=== PATIENT | female | born 1995 | race Caucasian/White ===

== ENCOUNTER 2020-11-28 14:40 | Observation (INO) | payer MEDICAID ==
[2020-11-28] MEDS ORDERED: PREN-217 PO (15:10)
[2020-11-28 15:12] VITALS: BP 119/57
[2020-11-28 17:22] LABS: APPEARANCE,URINE CLOUDY (CLEAR); BILIRUBIN,URINE NEGATIVE (NEGATIVE); GLUCOSE, URINE (UA) NEGATIVE (NEGATIVE); KETONES,URINE NEGATIVE (NEGATIVE); LEUKOCYTE ESTERASE ,URINE MODERATE (NEGATIVE); NITRATE,URINE NEGATIVE (NEGATIVE); OCCULT BLOOD,URINE NEGATIVE (NEGATIVE); PH,URINE 7.5 (5.0-8.0); PROTEIN,URINE TRACE (NEGATIVE); UROBILINOGEN,URINE 0.2 mg/dL (<=1.0)
[2020-11-28 17:27] LABS: AMPHET/METH SCREEN,URINE NEGATIVE (NEGATIVE); BARBITURATE SCREEN, URINE NEGATIVE (NEGATIVE); BENZODIAZEPINES SCREEN,URINE NEGATIVE (NEGATIVE); CANNABINOID SCREEN,URINE NEGATIVE (NEGATIVE); COCAINE SCREEN,URINE NEGATIVE (NEGATIVE); METHADONE SCREEN, URINE NEGATIVE (NEGATIVE); OPIATE SCREEN,URINE NEGATIVE (NEGATIVE)
[2020-11-28 17:28] LABS: PHENCYCLIDINE SCREEN,URINE NEGATIVE (NEGATIVE)
[2020-11-28 17:30] LABS: BASOPHILS % (AUTO) 0.2 % (0.0-2.0); EOSINOPHILS % (AUTO) 0.8 % (1.0-6.0); HEMATOCRIT 28.4 % (36-46); LYMPHOCYTES # (AUTO) 1.1 K/uL (1.0-4.8); LYMPHOCYTES % (AUTO) 13.2 % (22.0-44.0); MEAN CORPUSCULAR HEMOGLOBIN 34.3 pg (26.0-34.0); MEAN CORPUSCULAR VOLUME 98 fL (80-100); MONOCYTES # (AUTO) 0.4 K/uL (0.1-1.0); MONOCYTES % (AUTO) 4.3 % (2.0-9.0); NEUTROPHILS # (AUTO) 6.6 K/uL (1.8-7.7); NEUTROPHILS % (AUTO) 81.5 % (40.0-70.0); PLATELET COUNT (AUTO)-OB 283 K/uL (150-450); RED CELL DISTRIBUTION WIDTH 13.5 % (11.5-14.5)
[2020-11-28 17:37] LABS: BACTERIA,URINE Many /HPF (None Seen); RBC,URINE None Seen /HPF (0-2); SQUAMOUS EPITHELIAL CELL,UR Many /LPF (None Seen)
== END 2020-11-28 18:00 | disposition home or self-care (01) ==
LOC: 4S 14:40
PROVIDERS: ADMIT Obstetrics & Gynecology; ATTEND Obstetrics & Gynecology
DX: O26.893 Other specified pregnancy related conditions, third trimester (principal); R10.9 Unspecified abdominal pain; Z3A.34 34 weeks gestation of pregnancy; Z79.899 Other long term (current) drug therapy
CPT/HCPCS: 59025; 80307; 87086; 99219

== ENCOUNTER 2020-12-19 11:50 | Observation (INO) | payer MEDICAID ==
[~2020-12-19 11:50] MED LIST: PREN-217 PO
[2020-12-19] MEDS ORDERED: FERR236T3 PO (12:16)
[2020-12-19 12:18] VITALS: BP 121/60
== END 2020-12-19 14:30 | disposition home or self-care (01) ==
LOC: 4S 11:50
PROVIDERS: ADMIT Obstetrics & Gynecology; ATTEND Obstetrics & Gynecology
DX: O62.9 Abnormality of forces of labor, unspecified (principal); Z3A.37 37 weeks gestation of pregnancy
CPT/HCPCS: 59025; 99219

== ENCOUNTER 2020-12-25 22:56 | Observation (INO) | payer MEDICAID ==
[~2020-12-25] VITALS: Ht 157.5 cm; Wt 68.9 kg
[~2020-12-25 22:56] MED LIST changes: +FERR236T3 PO
== END 2020-12-26 01:15 | disposition home or self-care (01) ==
LOC: 4S 22:56
PROVIDERS: ADMIT Obstetrics & Gynecology; ATTEND Obstetrics & Gynecology
DX: O62.9 Abnormality of forces of labor, unspecified (principal); Z3A.38 38 weeks gestation of pregnancy
CPT/HCPCS: 99219

== ENCOUNTER 2020-12-30 14:28 | Observation (INO) | payer MEDICAID ==
[~2020-12-30] VITALS: Ht 157.5 cm; Wt 68.5 kg
== END 2020-12-30 15:20 | disposition home or self-care (01) ==
LOC: 4S 14:28
PROVIDERS: ADMIT Obstetrics & Gynecology; ATTEND Obstetrics & Gynecology
DX: O46.93 Antepartum hemorrhage, unspecified, third trimester (principal); Z3A.39 39 weeks gestation of pregnancy
CPT/HCPCS: 59025; 81001; 99219

== ENCOUNTER 2021-01-01 22:30 | Observation (INO) | payer MEDICAID ==
[~2021-01-01] VITALS: Ht 157.5 cm; Wt 70.3 kg
[2021-01-01 23:24] VITALS: BP 122/75
[2021-01-02] MEDS ORDERED: FERR-89 PO (18:08)
== END 2021-01-02 00:31 | disposition home or self-care (01) ==
LOC: 4S 22:30
PROVIDERS: ADMIT Obstetrics & Gynecology; ATTEND Obstetrics & Gynecology
DX: O62.9 Abnormality of forces of labor, unspecified (principal); Z3A.39 39 weeks gestation of pregnancy
CPT/HCPCS: 59025; 81001; 99219

== ENCOUNTER 2021-01-02 02:08 | Inpatient (IN) | payer MEDICAID ==
[~2021-01-02] VITALS: Ht 157.5 cm; Wt 68.9 kg
[2021-01-02 18:07] VITALS: BP 123/71
[2021-01-02] MEDS ORDERED: FERR-89 PO (18:08)
[2021-01-02] MEDS ORDERED: CITRIC ACID/SODIUM CITRATE 30 ML SOLUTION UDCUP PO PRN (20:45)
[2021-01-02] MEDS ORDERED: METOCLOPRAMIDE HCL 5 MG/ML 2 ML VIAL IVP PRN (20:45)
[2021-01-02] MEDS ORDERED: RINGERS SOLUTION,LACTATED 1,000 ML IV PRN (20:45)
[2021-01-02] MEDS ORDERED: OXYTOCIN 30 UNITS/LACT RINGERS 500 ML IV ONE (21:00)
[2021-01-02] MEDS ORDERED: FentaNYL CITRATE PF 100 MCG/2 ML VIAL IVP PRN (21:00)
[2021-01-02 21:21] LABS: BASOPHILS % (AUTO) 0.3 % (0.0-2.0); EOSINOPHILS % (AUTO) 0.4 % (1.0-6.0); HEMATOCRIT 28.6 % (36-46); HEMOGLOBIN 9.8 g/dL (12.0-16.0); LYMPHOCYTES # (AUTO) 1.3 K/uL (1.0-4.8); LYMPHOCYTES % (AUTO) 12.6 % (22.0-44.0); MEAN CORPUSCULAR HGB CONC 34.4 G/dL (31.0-37.0); MEAN CORPUSCULAR VOLUME 96 fL (80-100); MONOCYTES # (AUTO) 0.5 K/uL (0.1-1.0); MONOCYTES % (AUTO) 4.8 % (2.0-9.0); NEUTROPHILS # (AUTO) 8.3 K/uL (1.8-7.7); NEUTROPHILS % (AUTO) 81.9 % (40.0-70.0); PLATELET COUNT (AUTO)-OB 269 K/uL (150-450); RED BLOOD CELL COUNT(AUTO) 2.97 MIL/uL (4.00-5.20); RED CELL DISTRIBUTION WIDTH 13.5 % (11.5-14.5)
[2021-01-02] MEDS: RINGERS SOLUTION,LACTATED 1,000 ML IV SCH (21:24)
[2021-01-02 22:16] LABS: COVID AG,FIA SOURCE NASOPHARYNGEAL
[2021-01-02] MEDS ORDERED: AMPICILLIN SODIUM 2 GM/NS 100 ML IV ONE (23:45)
[2021-01-03] MEDS: AMPICILLIN SODIUM 1 GM/NS 50 ML IV SCH ×5 (03:48→21:39)
[2021-01-03] MEDS: RINGERS SOLUTION,LACTATED 1,000 ML IV SCH ×3 (04:26→20:01)
[2021-01-03] MEDS ORDERED: ROPIVACAINE HCL/PF 0.2% 100 ML ED ONE (04:41)
[2021-01-03] MEDS ORDERED: ONDANSETRON HCL 4 MG/2 ML VIAL IVP PRN (05:15)
[2021-01-03] MEDS ORDERED: DiphenhydrAMINE HCL 50 MG/ML VIAL IVP PRN (05:15)
[2021-01-03] MEDS ORDERED: ROPIVACAINE HCL/PF 0.2% 100 ML ED PRN (05:15)
[2021-01-03] MEDS ORDERED: OXYTOCIN 30 UNITS/LACT RINGERS 500 ML IV PRN (15:30)
[2021-01-03] MEDS ORDERED: ACETAMINOPHEN 500 MG TABLET PO ONE (16:30)
[2021-01-03] MEDS: OXYGEN THERAPY IH SCH ×2 (21:44→21:45)
[2021-01-04] MEDS ORDERED: OxyCODONE HCL/ACETAMINOPHEN 5-325 MG TABLET PO PRN (01:30)
[2021-01-04] MEDS ORDERED: LIDOCAINE/PF 1% 30 ML VIAL SQ PRN (01:30)
[2021-01-04] MEDS ORDERED: BENZOCAINE 20%/MENTHOL 56 GM SPRAY CANISTER TP PRN (01:30)
[2021-01-04] MEDS ORDERED: OXYTOCIN 30 UNITS/LACT RINGERS 500 ML IV ONE (01:30)
[2021-01-04] MEDS ORDERED: GLYCERIN/WITCH HAZEL LEAF 40 PADS JAR TP PRN (01:30)
[2021-01-04] MEDS ORDERED: LANOLIN 7 GM OINTMENT TP PRN (01:30)
[2021-01-04] MEDS ORDERED: MAGNESIUM HYDROXIDE SUSPENSION 30 ML UDCUP PO PRN (01:30)
[2021-01-04] MEDS: IBUPROFEN 800 MG TABLET PO PRN ×4 (02:25→23:18)
[2021-01-04] MEDS: OxyCODONE HCL/ACETAMINOPHEN 5-325 MG TABLET PO PRN (08:55)
[2021-01-05 06:21] LABS: BASOPHILS % (AUTO) 0.2 % (0.0-2.0); EOSINOPHILS % (AUTO) 2.1 % (1.0-6.0); LYMPHOCYTES # (AUTO) 1.6 K/uL (1.0-4.8); LYMPHOCYTES % (AUTO) 14.3 % (22.0-44.0); MEAN CORPUSCULAR HGB CONC 33.9 G/dL (31.0-37.0); MEAN CORPUSCULAR VOLUME 97 fL (80-100); MONOCYTES # (AUTO) 0.5 K/uL (0.1-1.0); MONOCYTES % (AUTO) 4.2 % (2.0-9.0); NEUTROPHILS % (AUTO) 79.2 % (40.0-70.0); PLATELET COUNT (AUTO)-OB 212 K/uL (150-450); RED BLOOD CELL COUNT(AUTO) 1.93 MIL/uL (4.00-5.20); RED CELL DISTRIBUTION WIDTH 13.6 % (11.5-14.5)
[2021-01-05 07:01] LABS: HEMATOCRIT 18.8 % (36-46); HEMOGLOBIN 6.4 g/dL (12.0-16.0)
[2021-01-05] MEDS ORDERED: IRON SUCROSE COMPLEX 100 MG in SODIUM CHLORIDE 0.9% 100 ML IV ONE (08:00)
[2021-01-05] MEDS: IBUPROFEN 800 MG TABLET PO PRN (15:13)
[2021-01-05 16:39] LABS: MONOCYTES # (AUTO) 0.4 K/uL (0.1-1.0); NEUTROPHILS # (AUTO) 9.6 K/uL (1.8-7.7); RED CELL DISTRIBUTION WIDTH 13.8 % (11.5-14.5)
[2021-01-05 16:57] LABS: BASOPHILS % (AUTO) 0.2 % (0.0-2.0); EOSINOPHILS % (AUTO) 1.2 % (1.0-6.0); LYMPHOCYTES # (AUTO) 1.4 K/uL (1.0-4.8); LYMPHOCYTES % (AUTO) 12.3 % (22.0-44.0); MEAN CORPUSCULAR HEMOGLOBIN 32.2 pg (26.0-34.0); MEAN CORPUSCULAR HGB CONC 33.3 G/dL (31.0-37.0); MEAN CORPUSCULAR VOLUME 97 fL (80-100); MONOCYTES % (AUTO) 3.2 % (2.0-9.0); NEUTROPHILS % (AUTO) 83.1 % (40.0-70.0); PLATELET COUNT (AUTO)-OB 257 K/uL (150-450)
[2021-01-05 17:03] LABS: HEMATOCRIT 20.4 % (36-46); HEMOGLOBIN 6.8 g/dL (12.0-16.0)
[2021-01-06] MEDS ORDERED: IRON SUCROSE COMPLEX 100 MG in SODIUM CHLORIDE 0.9% 100 ML IV ONE (06:00)
[2021-01-06] MEDS: IBUPROFEN 800 MG TABLET PO PRN (06:00)
[2021-01-06] MEDS ORDERED: MEASLES/MUMPS/RUBELLA VACCINE, LIVE 0.5 ML VIAL SQ. ONE (07:15)
[2021-01-06] MEDS ORDERED: IBUP-2070 PO (10:57)
[2021-01-06] MEDS: OxyCODONE HCL/ACETAMINOPHEN 5-325 MG TABLET PO PRN (11:20)
== END 2021-01-06 11:25 | disposition home or self-care (01) | DRG 542 ==
LOC: OBSVTOIN 17:40 → 4S 17:40
PROVIDERS: ADMIT Obstetrics & Gynecology; ATTEND Obstetrics & Gynecology
PROC: 10E0XZZ Delivery of Products of Conception, External Approach (ICD-10-PCS; principal; 2021-01-03)
PROC: 0DQR0ZZ Repair Anal Sphincter, Open Approach (ICD-10-PCS; 2021-01-03)
PROC: 10907ZC Drainage of Amniotic Fluid, Therapeutic from Products of Conception, Via Natural or Artificial Opening (ICD-10-PCS; 2021-01-03)
PROC: 0W8NXZZ Division of Female Perineum, External Approach (ICD-10-PCS; 2021-01-03)
PROC: 3E0R3BZ Introduction of Anesthetic Agent into Spinal Canal, Percutaneous Approach (ICD-10-PCS; 2021-01-03)
PROC: 00HU33Z Insertion of Infusion Device into Spinal Canal, Percutaneous Approach (ICD-10-PCS; 2021-01-03)
PROC: 3E0234Z Introduction of Serum, Toxoid and Vaccine into Muscle, Percutaneous Approach (ICD-10-PCS; 2021-01-06)
DX: O99.824 Streptococcus B carrier state complicating childbirth (principal); D64.9 Anemia, unspecified; O99.02 Anemia complicating childbirth; O70.20 Third degree perineal laceration during delivery, unspecified; Z3A.40 40 weeks gestation of pregnancy; Z37.0 Single live birth; Z23 Encounter for immunization; Z20.822 Contact with and (suspected) exposure to COVID-19
CPT/HCPCS: 85025; 86850; 86870; 86900; 86901; 87426; 90707; 99219; J0290; J1756; J2590; J2795; J7050; J7120